=== PATIENT | female | born 1995 | race Caucasian/White ===

== ENCOUNTER 2016-08-21 10:38 | Inpatient (IN) | payer MEDICAID, OTHER ==
[~2016-08-21] VITALS: Ht 167.6 cm; Wt 72.2 kg
[2016-08-21] VITALS (22 sets, daily range): BP systolic 97–106; BP diastolic 47–64; PULSE 65–105; RESP 16–25; TEMP 99.9; Ht 167.6 cm; Wt 72.2 kg
[~2016-08-21 10:38] MED LIST: EPHEDrine SULFATE 50 MG/5 ML SYG ONE; GLYCOPYRROLATE 0.4 MG INJ ONE; NEOSTIGMINE 3 MG/3 ML SYRINGE ONE
[2016-08-21] MEDS ORDERED: KETOROLAC 30 MG INJ IV STA (11:29)
[2016-08-21 12:00] LABS: ADD SCAN DIFF NO
[2016-08-21] MEDS ORDERED: SOD CHLORIDE 0.9% 1,000 ML IV ONE ×2 (12:00→15:00)
[2016-08-21 12:01] LABS: ADD UMIC YES; URINE BILIRUBIN (Dip) NEGATIVE (NEGATIVE); URINE BLOOD (Dip) NEGATIVE (NEGATIVE); URINE COLOR LT. YELLOW (YELLOW); URINE GLUCOSE (Dip) NEGATIVE (NEGATIVE); URINE KETONES (Dip) NEGATIVE (NEGATIVE); URINE LEUKOCYTE ESTERASE (Dip) NEGATIVE (NEGATIVE); URINE NITRITE (Dip) NEGATIVE (NEGATIVE); URINE TOTAL PROTEIN (Dip) TRACE (NEGATIVE); URINE UROBILINOGEN (Dip) 0.2 E.U./dL (0.1-1.0)
[2016-08-21 12:07] LABS: BASOPHILS % 0.2 % (0.0-2.0); EOSINOPHILS % 0.1 % (0.0-7.0); HEMATOCRIT 38.1 % (37.0-47.0); HEMOGLOBIN 12.9 g/dl (12.0-16.0); LYMPHOCYTES # 1.7 10^3/ul (0.8-2.9); LYMPHOCYTES % 11.6 % (15.0-51.0); MEAN CORPUSCULAR HEMOGLOBIN 30.1 pg (29.0-33.0); MEAN CORPUSCULAR HGB CONC 33.9 g/dl (32.0-37.0); MEAN PLATELET VOLUME 9.8 fl (7.4-10.4); MONOCYTE # 0.8 10^3/ul (0.3-0.9); MONOCYTES % 5.4 % (0.0-11.0); NEUTROPHIL # 11.7 10^3/ul (1.6-7.5); NEUTROPHILS % 82.3 % (39.0-77.0); PLATELET COUNT 311 10^3/UL (140-415); RED BLOOD COUNT 4.28 10^6/ul (4.20-5.40); RED CELL DISTRIBUTION WIDTH 12.2 % (11.5-14.5); WHITE BLOOD COUNT 14.3 10^3/ul (4.8-10.8)
--- NOTE | 2016-08-21 12:11 | RADRPT ---
PROCEDURE: Renal US. CLINICAL INDICATION: Flank pain TECHNIQUE: Multiple sonographic images of the kidneys were obtained. The images were reviewed on a PACS workstation. COMPARISON: No prior studies are available for comparison. FINDINGS: The right kidney measures 11.8 cm. The left kidney measures 10.1 cm. The kidneys demonstrate normal echogenicity. No masses, stones or hydronephrosis are identified. The bladder is filled with a minimal amount of urine and has an unremarkable appearance. IMPRESSION: Unremarkable kidneys. RPTAT: AA .Davis Avitia MD, Date Time Electronically viewed and signed by .Davis Avitia MD, on 08/21/2016 12:11 .P/
[2016-08-21 12:24] LABS: ALBUMIN 4.7 g/dl (3.3-4.9); ALBUMIN/GLOBULIN RATIO 1.62; BILIRUBIN,INDIRECT 1.1 mg/dl (0-1.1); BILIRUBIN,TOTAL 1.1 mg/dl (0.2-1.3); CALCIUM 9.3 mg/dl (8.4-10.2); CREATININE 0.59 mg/dl (0.44-1.00); POTASSIUM 3.9 mmol/L (3.5-5.1); TOTAL PROTEIN 7.6 g/dl (6.1-8.1)
--- NOTE | 2016-08-21 12:25 | RADRPT ---
PROCEDURE: US Pelvis CLINICAL INDICATION: Right lower quadrant pain TECHNIQUE: Sonographic evaluation of the pelvis was performed utilizing both transabdominal and tr ansvaginal technique. Curved array transabdominal transducer technique as well as a high frequency endovaginal probe was utilized. Images were reviewed on the high-resolution PACS workstation. COMPARISON: No prior studies are available for comparison. FINDINGS: The uterus is normal in size, echogenicity, and morphology measuring 6.5 x 3.2 x 4.5 cm in dimension . The uterus is anteverted in normal position. The endometrium is thin and homogeneous measuring 5.5 mm in diameter. The right ovary measures 3.4 x 1.8 x 2.1 cm in dimension. The left ovary measures 3.5 x 1.8 x 2.2 c m in dimension. The ovaries are symmetric in size, echogenicity, and morphology. Normal Doppler fl ow is demonstrated to both ovaries. There are no adnexal masses. There is small free fluid in the pelvis. IMPRESSION: Small free fluid in the pelvis. Otherwise, unremarkable pelvic ultrasound. RPTAT: HH .Nancie Campos MD, Date Time Electronically viewed and signed by .Nancie Campos MD, on 08/21/2016 12:24 .G/
--- NOTE | 2016-08-21 14:01 | RADRPT ---
PROCEDURE: CT Abdomen and pelvis without contrast. CLINICAL INDICATION: Right lower quadrant abdominal pain TECHNIQUE: CT scan of the abdomen and pelvis with contrast was performed on a multidetector high-r esolution CT scan. . Coronal and sagittal reformatted images were obtained from the axial source i mages. Standard CT scan of the abdomen pelvis without contrast protocols were performed. The total exam CTDI equals 9.34 mGy and the total exam DLP equals 505.42 mGy-cm. One or more of the following dose reduction techniques were used: - Automated exposure control. - Adjustment of the mA and/or kV according to patient size. Use of iterative reconstruction technique. COMPARISON: Pelvic ultrasound and bilateral renal ultrasound same day FINDINGS: The appendix is dilated with a maximal diameter of 1 cm with thickened wall and adjacent induration and mild free fluid consistent with acute appendicitis. There is mild free fluid in the right cul-d e-sac. No other abdominal free fluid. Negative for intra-abdominal free air or abscesses. The stomach, small bowel and large bowel are otherwise unremarkable. The kidneys are normal in size with mild bilateral medullary nephrocalcinosis. No evidence of hydro nephrosis or ventral masses bilaterally. There is mild circumferential urinary bladder wall thicken ing which may relate to lack of optimal distension this cystitis cannot be excluded. The uterus and adnexa are unremarkable. The liver spleen pancreas adrenal glands and gallbladder ar e unremarkable. No evidence biliary ductal dilation. The aorta is unremarkable. There is a tiny fat containing umbilical hernia but no herniated bowel o r strangulation. The osseous structures are unremarkable. The lung bases are unremarkable. IMPRESSION: 1. Dilated thick-walled appendix with mild periappendiceal induration and trace fluid consistent wi th acute appendicitis. 2. Mild free fluid in the right cul-de-sac without intra-abdominal free air or abscess. 3. Mild bilateral medullary nephrocalcinosis but no obstructive uropathy. 4. Tiny fat containing umbilical hernia without herniated hour strangulation. Addendum: The physician assistant principal Dionne was telephoned this results on 08/21/2016 at 1350 hours. RPTAT:AAJJ Physician Zachary Date Time Electronically viewed and signed by Physician Zachary on 08/21/2016 14:01 BM/
--- NOTE | 2016-08-21 14:02 | ERA ---
ER Documentation Chief Complaint Date/Time DATE: 08/21/16 TIME: 14:01 Chief Complaint ap since last night HPI This 21-year-old female presents with abdominal pain that began last night. She has also had nausea and diarrhea. Has felt chills with no fevers. Abdominal pain was central and now is in the right lower abdomen. States that she is otherwise healthy. ROS All systems reviewed and are negative except as per history of present illness. Allergies Allergies: Coded Allergies: No Known Allergy (Unverified , 08/21/16) PMhx/Soc Medical and Surgical Hx: pt denies Medical Hx, pt denies Surgical Hx Hx Alcohol Use: No Hx Substance Use: No Hx Tobacco Use: No Smoking Status: Never smoker Physical Exam Vitals Vital Signs Date Time Temp Pulse Resp B/P Pulse Ox O2 Delivery O2 Flow Rate FiO2 08/21/16 15:00 99.9 98 18 112/67 99 Room Air 08/21/16 10:43 98.1 89 18 100/62 99 Physical Exam Const: [] Mild distress, appears somewhat uncomfortable Head: Atraumatic Eyes: Normal Conjunctiva ENT: Normal External Ears, Nose and Mouth. Neck: Full range of motion..~ No meningismus. Resp: Clear to auscultation bilaterally Cardio: Regular rate and rhythm, no murmurs Abd: Soft, moderate right lower quadrant tenderness with positive rebound, no guarding, non distended. Normal bowel sounds Skin: No petechiae or rashes Back: No midline or flank tenderness Ext: No cyanosis, or edema Neur: Awake and alert and oriented 3, no focal deficits Psych: Normal Mood and Affect Result Diagram: 08/21/16 1140 08/21/16 1140 Results 24 hrs Laboratory Tests Test 08/21/16 11:38 08/21/16 11:40 08/21/16 14:30 Urine Color LT. YELLOW Urine Clarity CLEAR Urine pH 8.0 Urine Specific Fischer 1.015 Urine Ketones NEGATIVE Urine Nitrite NEGATIVE Urine Bilirubin NEGATIVE Urine Urobilinogen 0.2 E.U./dL Urine Leukocyte Esterase NEGATIVE Urine Microscopic RBC 5-10/HPF Urine Microscopic WBC 5-10/HPF Urine Hemoglobin NEGATIVE Urine Glucose NEGATIVE% Urine Total Protein TRACE White Blood Count 14.310^3/ul Red Blood Count 4.2810^6/ul Hemoglobin 12.9g/dl Hematocrit 38.1% Mean Corpuscular Volume 89.0fl Mean Corpuscular Hemoglobin 30.1pg Mean Corpuscular Hemoglobin Concent 33.9g/dl Red Cell Distribution Width 12.2% Platelet Count 43239^3/UL Mean Platelet Volume 9.8fl Neutrophils % 82.3% Lymphocytes % 11.6% Monocytes % 5.4% Eosinophils % 0.1% Basophils % 0.2% Nucleated Red Blood Cells % 0.0/100WBC Neutrophils # 11.710^3/ul Lymphocytes # 1.710^3/ul Monocytes # 0.810^3/ul Eosinophils # 0.010^3/ul Basophils # 0.010^3/ul Nucleated Red Blood Cells # 0.010^3/ul Sodium Level 142mmol/L Potassium Level 3.9mmol/L Chloride Level 104mmol/L Carbon Dioxide Level 26mmol/L Anion Gap 16 Blood Urea Nitrogen 10mg/dl Creatinine 0.59mg/dl Glucose Level 91mg/dl Calcium Level 9.3mg/dl Total Bilirubin 1.1mg/dl Direct Bilirubin 0.00mg/dl Indirect Bilirubin 1.1mg/dl Aspartate Amino Transf (AST/SGOT) 18IU/L Alanine Aminotransferase (ALT/SGPT) 25IU/L Alkaline Phosphatase 61IU/L Total Protein 7.6g/dl Albumin 4.7g/dl Globulin 2.90g/dl Albumin/Globulin Ratio 1.62 Lipase 34U/L Prothrombin Time 13.8Sec Prothrombin Time Ratio 1.1 INR International Normalized Ratio 1.06 Activated Partial Thromboplast Time 33.2Sec Current Medications Medications (Trade) Dose Ordered Sig/Laureen Route PRN Reason Start Time Stop Time Status Last Admin Dose Admin Ketorolac Tromethamine 30 mg 30 mg ONCE STAT IV 08/21/16 11:29 08/21/16 11:33 DC 08/21/16 12:15 Sodium Chloride 1,000 ml @ 1,000 mls/hr Q1H ONCE IV 08/21/16 12:00 08/21/16 12:59 DC 08/21/16 11:48 Piperacillin Sod/ Tazobactam Sod 100 ml @ 200 mls/hr ONCE ONCE IVPB 08/21/16 15:00 08/21/16 15:29 08/21/16 14:55 Sodium Chloride (NS) 1,000 ml @ 1,000 mls/hr Q1H ONCE IV 08/21/16 15:00 08/21/16 15:59 08/21/16 14:55 Morphine Sulfate (morphine) 2 mg ONCE ONCE IV 08/21/16 15:00 08/21/16 15:01 DC 08/21/16 14:55 Ondansetron HCl (Zofran Inj) 4 mg BRIDGE ORDER PRN IV NAUSEA AND/OR VOMITING 08/21/16 15:00 08/22/16 14:59 08/21/16 14:54 Acetaminophen (Tylenol Tab) 650 mg ER BRIDGE PRN PO MILD PAIN/FEVER 08/21/16 15:00 08/22/16 14:59 Procedures/MDM Acute appendicitis. Patient will be admitted for surgical management of this condition. Initially there was concern for possible ovarian pain and ultrasound was negative for this. CAT scan is positive for appendicitis. Patient has stable vital signs. She was given 2 L IV fluid and Zosyn. She had initially been given Toradol in ED 2 and there was concern for pelvic problem. If the patient in a dose of morphine. Spoke with Dr. Lao who will be managing the case. Patient is being admitted to Dr. Isiah Bermudez. CT abdomen pelvis interpretation: Acute appendicitis with mild pelvic free fluid , no obstruction, no free air or signs of perforation, no fractures Pelvic/reanal ultrasound interpretation: No ovarian torsion or renal inflammation. No kidney obstruction, mild free fluid. Departure Diagnosis: Primary Impression: Acute appendicitis Additional Impressions: Acute abdominal pain Leukocytosis Condition: Serious ALDO ROBLES DO Aug 21, 2016 14:02
[2016-08-21 14:47] LABS: INR 1.06; PROTIME 13.8 Sec (12.2-14.2); PT RATIO 1.1
[2016-08-21 14:48] LABS: PARTIAL THROMBOPLASTIN TIME 33.2 Sec (25.0-35.0)
[2016-08-21] MEDS ORDERED: ACETAMINOPHEN 325 MG TAB PO PRN ×3 (15:00→16:30)
[2016-08-21] MEDS ORDERED: morphine 2 MG INJ IV ONE (15:00)
[2016-08-21] MEDS ORDERED: PIPER-TAZO 3.375 GM IV (PMX) 100 ML IVPB ONE (15:00)
[2016-08-21] MEDS ORDERED: ONDANSETRON 4 MG INJ IV PRN ×3 (15:00→18:00)
[2016-08-21] MEDS ORDERED: NACL 0.9% 3 ML SYG IV SCH (15:30)
[2016-08-21] MEDS ORDERED: HYDROCODONE/APAP (5/325) TAB PO PRN ×3 (15:30→16:30)
[2016-08-21] MEDS ORDERED: morphine 2 MG INJ IV PRN ×2 (15:30→16:30)
[2016-08-21] MEDS ORDERED: ACETAMINOPHEN 650 MG SUPP PR PRN (15:30)
[2016-08-21] MEDS ORDERED: BISACODYL 10 MG SUPP PR PRN (15:30)
[2016-08-21] MEDS ORDERED: MAGNESIUM HYDROXIDE 30ML CUP PO PRN (15:30)
[2016-08-21] MEDS ORDERED: DOCUSATE SODIUM 100 MG CAP PO PRN (15:30)
[2016-08-21] MEDS ORDERED: SOD CHLORIDE 0.9% 1,000 ML IV SCH (16:00)
[2016-08-21] MEDS: D5-NS + KCL 20 MEQ 1,000 ML IV SCH ×2 (16:27→22:04)
[2016-08-21] MEDS ORDERED: IBUPROFEN 600 MG TAB PO PRN (16:30)
[2016-08-21] MEDS ORDERED: MIDAZOLAM 1 MG/ML 2 ML INJ ONE (16:48)
[2016-08-21] MEDS ORDERED: FENTAnyl 50 MCG/ML VIAL ONE (16:48)
[2016-08-21] MEDS ORDERED: PROPOFOL 20 ML ONE (16:48)
[2016-08-21] MEDS ORDERED: BUPIVACAINE 0.25%/EPI (SDV) 30 ML INJ ONE (16:48)
[2016-08-21] MEDS ORDERED: LIDOCAINE 1% (STERILE-PAK) 30 ML INJ ONE (16:48)
[2016-08-21] MEDS ORDERED: ROCURONIUM 50 MG INJ ONE (16:48)
[2016-08-21] MEDS ORDERED: LIDOCAINE 2% (SDV) 5 ML INJ ONE (16:48)
[2016-08-21] MEDS ORDERED: SUCCINYLCHOLINE CHLORIDE 100 MG/5 ML SYG IV ONE (16:48)
[2016-08-21] MEDS ORDERED: ONDANSETRON 4 MG INJ ONE (17:19)
[2016-08-21] MEDS ORDERED: FAMOTIDINE 20 MG INJ ONE (17:20)
[2016-08-21] MEDS ORDERED: DEXAMETHASONE 4 MG/ML 1 ML INJ ONE (17:20)
[2016-08-21] MEDS ORDERED: PHENYLephrine (100 MCG/ML) 5ML SYG ONE (17:20)
--- NOTE | 2016-08-21 17:22 | CONS ---
DATE OF ADMISSION: 08/21/2016 DATE OF CONSULTATION: 08/21/2016 HISTORY OF PRESENT ILLNESS: Ms. Knott is a 21-year-old female who had the acute onset of abdominal pain, generalized, last night at 9:00. It localized to the right lower quadrant over time and was associated with nausea, vomiting and some fevers and chills. Due to her symptoms, she presented to the ER, and her workup was consistent with acute appendicitis. I was called for consultation. PAST MEDICAL HISTORY: Noncontributory. PAST SURGICAL HISTORY: None. MEDICATIONS: None. ALLERGIES: NO KNOWN DRUG ALLERGIES. SOCIAL HISTORY: Denies drinking, drug use or smoking. REVIEW OF SYSTEMS: A 14-point review of systems was performed. Pertinent positives and negatives a s per HPI. PHYSICAL EXAMINATION: GENERAL: She is a well-nourished, well-developed female in no apparent distress. VITAL SIGNS: She is afebrile. Vital signs are stable. CHEST: Clear to auscultation bilaterally. HEART: Regular rhythm. ABDOMEN: Soft, nondistended with significant right lower quadrant tenderness. SKIN: Intact. NEUROLOGIC: No deficits. EXTREMITIES: No clubbing, cyanosis, or edema. IMAGING: Her CT reveals acute appendicitis. LABORATORY DATA: Show a white count of 14, hematocrit of 38 and platelets of 311. Sodium 142, pota ssium 3.9, chloride 104, CO2 of 26, BUN and creatinine 10 and 0.6, and glucose of 91. ASSESSMENT AND PLAN: Ms. Knott is a 21-year-old female with acute appendicitis. I discussed lapar oscopic, possible open appendectomy. All benefits, risks, alternatives discussed in detail, questio ns answered. The patient elected to proceed. Dictated By: RADHA PATE/NTS Conf#: [id number] DID#: [id number]
[2016-08-21] MEDS ORDERED: KETOROLAC 30 MG INJ ONE (17:42)
[2016-08-21] MEDS ORDERED: HYDROmorphONE (0.2 MG/ML) 10ML SYG IV PRN (18:00)
[2016-08-21] MEDS ORDERED: FENTAnyl 50 MCG/ML VIAL IV PRN (18:00)
[2016-08-21] MEDS ORDERED: PROCHLORPERAZINE 10 MG INJ IV PRN (18:00)
[2016-08-21] MEDS ORDERED: AMPICILLIN/SULB 1.5GM/NS (PMX) 50 ML IVPB SCH (18:00)
[2016-08-21] MEDS ORDERED: DIPHENHYDRAMINE 50 MG INJ IV PRN (18:00)
[2016-08-21] MEDS ORDERED: MEPERIDINE 25 MG INJ IV PRN (18:00)
--- NOTE | 2016-08-21 18:28 | OPR ---
DATE OF OPERATION: 08/21/2016 PREOPERATIVE DIAGNOSIS: Acute appendicitis. POSTOPERATIVE DIAGNOSIS: Acute appendicitis. PROCEDURE: Laparoscopic appendectomy. SURGEON: Radha Lao MD PERSONNEL TRAINING OFFICER: None. ANESTHESIA: General endotracheal. ANESTHESIOLOGIST: Lisha Wayne MD ESTIMATED BLOOD LOSS: Minimal. COMPLICATIONS: None. SPECIMEN: Appendix. FINDINGS: Acute appendicitis. INDICATIONS: Ms. Knott is a 21-year-old female who had acute onset of abdominal pain with nausea, vomiting, localizing into her right lower quadrant. Presented to the ER where her workup was consis tent with acute appendicitis. I was called for consultation. I discussed laparoscopic, possible op en appendectomy with the patient. All benefits, risks, alternatives were discussed in detail, quest ions answered. The patient elected to proceed. DESCRIPTION OF PROCEDURE: The patient was brought to the operating room and placed supine on the ta ble. After preoperative antibiotics and SCDs were placed, the patient was intubated and the abdomen was cleaned, prepped and draped in the usual sterile fashion. All incisions were infiltrated with 1% lidocaine with epinephrine and 0.5% Marcaine prior to incision. A 5 mm incision was made on the umbilicus. Using a 5 mm laparoscope containing trocar, the abdomen was entered under direct vision and insufflated to 15 mmHg of CO2. The following trocars were then placed under direct vision: Rig ht lower quadrant 5 mm and a left lower quadrant 12 mm. Emanating from the cecum was an obvious acute appendicitis. It was not ruptured or perforated. I m anne a rent in the mesentery at the base of the appendix and divided the cecum at the base of the ayesha endix with a 35 mm Endo Linear Cutter white load. The appendiceal mesentery was then divided with t wo of the 35 mm Endo Linear Cutter white load. The appendix was placed in an Endo Catch bag and rem darrel from the 12 mm trocar site. There was some oozing from the staple line which was controlled wi th 5 mm clips. At this point, I irrigated and aspirated the right upper quadrant and pelvis until e ffluent was clear. I visualized my staple lines once again, they were hemostatic. I then desufflat ed the abdomen and removed all trocars. The fascia of the 12 mm trocar site was closed with 0 Vicryl. Skin incisions were closed with 4-0 M onocryl, Mastisol, and Steri-Strips. The patient tolerated the procedure well, was extubated in the OR and transferred to the recovery room in stable condition. Dictated By: RADHA PATE/HEMANT Conf#: [id number] DID#: [id number]
[2016-08-21] MEDS: KETOROLAC 30 MG INJ IV SCH (19:03)
[2016-08-21] MEDS: PIPER-TAZO 3.375 GM IV (PMX) 100 ML IVPB SCH (21:07)
[2016-08-22] MEDS: KETOROLAC 30 MG INJ IV SCH ×3 (01:12→10:36)
[2016-08-22 04:30] VITALS: BP 99/52; PULSE 64; RESP 17
[2016-08-22] MEDS: PIPER-TAZO 3.375 GM IV (PMX) 100 ML IVPB SCH ×3 (04:58→11:54)
[2016-08-22 05:36] LABS: ALBUMIN 3.5 g/dl (3.3-4.9); ALBUMIN/GLOBULIN RATIO 1.45; BILIRUBIN,INDIRECT 0.7 mg/dl (0-1.1); BILIRUBIN,TOTAL 0.7 mg/dl (0.2-1.3); CALCIUM 8.8 mg/dl (8.4-10.2); CHOL/HDL RATIO 2.4 RATIO; CREATININE 0.6 mg/dl (0.44-1.00); PHOSPHORUS 4.5 mg/dl (2.5-4.9); POTASSIUM 4.9 mmol/L (3.5-5.1); TOTAL PROTEIN 5.9 g/dl (6.1-8.1)
[2016-08-22 05:52] LABS: T3 UPTAKE 40.1 % (23.5-40.5)
[2016-08-22] MEDS ORDERED: PANTOPRAZOLE 40 MG INJ IV SCH (06:00)
[2016-08-22 06:06] LABS: THYROID STIMULATING HORMONE 0.516 MIU/L (0.465-4.680)
[2016-08-22] MEDS ORDERED: ENOXAPARIN 40 MG/0.4 ML SYG SC SCH (07:00)
--- NOTE | 2016-08-22 07:49 | HP ---
DATE OF ADMISSION: 08/21/2016 TIME SEEN: 2300. CHIEF COMPLAINT: Abdominal pain. HISTORY OF PRESENT ILLNESS: The patient is a 21-year-old female with no significant past medical hi story, who presented to the emergency department complaining of abdominal pain, nausea and nonbloody , nonbilious vomiting. Imaging shows findings consistent with acute appendicitis. The patient had already been taken the OR and is now status post uncomplicated laparoscopic appendectomy. When she initially came to the ER, her vitals were stable and her laboratory values show a WBC of 14,000, oth erwise CBC and CMP were unremarkable. REVIEW OF SYSTEMS: A 12-point review of systems was performed and negative except as mentioned in t he HPI. PAST MEDICAL HISTORY: As per HPI. PAST SURGICAL HISTORY: Denies. SOCIAL HISTORY: Denies a history of tobacco, alcohol or illicit drug use. ALLERGIES: NO KNOWN DRUG ALLERGIES. HOME MEDICATIONS: None. PHYSICAL EXAMINATION: VITAL SIGNS: Stable. GENERAL: In no acute distress. She actually looks comfortable. Oriented to time and person and ab le to speak. HEENT: No obvious head deformity. Extraocular muscles intact. CARDIOVASCULAR: Regular rate and rhythm. No extra sounds. LUNGS: Clear. ABDOMEN: Soft. There is minimal tenderness in the laparoscopic surgical site, otherwise no distent ion. There are positive bowel sounds. No rigidity. EXTREMITIES: No edema. RECTAL: No focal deficits. LABORATORY: Initially WBC was 14.3. Otherwise, CBC and CMP were unremarkable. IMAGING: CT abdomen and pelvis with findings consistent with an acute appendicitis. IMPRESSION: 1. Acute appendicitis, status post laparoscopic appendectomy. 2. Abdominal pain, secondary to above. 3. Leukocytosis secondary to appendicitis. PLAN: The patient is status post uncomplicated laparoscopic appendectomy. Advance diet as tolerate d. Will continue to provide pain medication and antiemetics as needed. Once the patient is able to tolerate oral intake and starts to ambulate, if her pain is acceptably controlled, then the patient will be discharged home later on in the afternoon after clearance from surgery. Further workup and management per clinical course. Dictated By: ARPIT READ/HEMANT Conf#: [id number] DID#: [id number]
[2016-08-22 07:50] VITALS: BP 96/49; RESP 18
[2016-08-22] MEDS: D5-NS + KCL 20 MEQ 1,000 ML IV SCH (08:58)
[2016-08-22] MEDS ORDERED: DOCU-144 PO (14:27)
--- NOTE | 2016-08-22 14:28 | PDOCDIS ---
Discharge Instructions DIAGNOSIS Discharge Diagnosis: 1. acute appendicitis CONDITION Patient Condition: Stable HOME CARE INSTRUCTIONS: Diet Instructions: Low Fat /Cholesterol FOLLOW UP/APPOINTMENTS Appointments 1. Follow up with Dr. Pato Lao in one week JEFFREY STEPHENS Aug 22, 2016 14:28
[2016-08-22 15:45] VITALS: BP 99/62; PULSE 69; RESP 18
[2016-08-22] MEDS ORDERED: OXYC-279 PO (16:04)
== END 2016-08-22 17:15 | disposition home or self-care (01) | DRG 343 ==
LOC: FTE 10:38 → SDS 15:41 → MS1 15:42
PROVIDERS: ADMIT Surgery; ATTEND Surgery
PROC: 0DTJ4ZZ Resection of Appendix, Percutaneous Endoscopic Approach (ICD-10-PCS; principal; 2016-08-21 16:00)
DX: K35.80 Unspecified acute appendicitis (principal)
CPT/HCPCS: 36415; 74176; 76775; 76830; 76856; 80053; 80061; 81001; 83036; 83690; 83735; 84100; 84436; 84443; 84479; 85025; 85610; 85730; 88304; 96374; 96375; C9113; J0295; J1100; J1170; J1650; J1885; J2175; J2250; J2270; J2370; J2405; J2543; J2710; J3010; J3480; J7030; J7999

== ENCOUNTER 2016-11-20 21:46 | Emergency (ER) | payer MEDICAID, OTHER ==
[~2016-11-20] VITALS: Ht 167.6 cm; Wt 68.5 kg
[~2016-11-20 21:46] MED LIST changes: +DOCU-144 PO; -EPHEDrine SULFATE 50 MG/5 ML SYG ONE; -GLYCOPYRROLATE 0.4 MG INJ ONE; -NEOSTIGMINE 3 MG/3 ML SYRINGE ONE; +OXYC-279 PO
[2016-11-20 21:52] VITALS: Ht 167.6 cm; Wt 68.5 kg
[2016-11-21] MEDS ORDERED: IBUP400T22 PO (02:09)
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
[2016-11-21 02:33] VITALS: BP 108/66; PULSE 75; RESP 20; TEMP 98.4
== END 2016-11-21 02:33 | disposition home or self-care (01) ==
LOC: FTE 21:46
DX: S49.92XA Unspecified injury of left shoulder and upper arm, initial encounter (principal); S29.9XXA Unspecified injury of thorax, initial encounter; V43.52XA Car driver injured in collision with other type car in traffic accident, initial encounter
CPT/HCPCS: 99283